=== PATIENT | male | born 1965 | race Caucasian/White ===

== ENCOUNTER 2017-07-18 04:57 | Emergency (ER) | payer OTHER ==
[~2017-07-18] VITALS: Ht 185.4 cm; Wt 111.0 kg
[~2017-07-18 04:57] MED LIST: DOXYCYCLINE HY100 MG PO; DULERA 200 MCG/13 GM IH; INCRUSE ELLI62.5 MCG IH; VENTOLIN HFA18 GM IH
[2017-07-18 05:56] VITALS: BP 122/83
== END 2017-07-18 06:03 | disposition home or self-care (01) ==
LOC: EME 04:57
DX: M25.562 Pain in left knee (principal); M25.462 Effusion, left knee; J44.9 Chronic obstructive pulmonary disease, unspecified; F17.200 Nicotine dependence, unspecified, uncomplicated
CPT/HCPCS: 73564; 99281; 99284

== ENCOUNTER 2017-07-25 17:52 | Emergency (ER) | payer OTHER ==
[~2017-07-25] VITALS: Ht 185.4 cm; Wt 116.6 kg
[2017-07-25 18:37] LABS: HEMATOCRIT 40.1 % (38.0-50.0); HEMOGLOBIN 13.7 G/DL (12.5-16.6); MCH 32.2 PG (29.0-34.0); MCHC 34.2 G/DL (30.0-36.0); MCV 94.1 FL (86-99); PLATELET COUNT 268 K/uL (156-360); RBC DIS.WIDTH-CV 12.7 % (11.8-14.6); RBC DIS.WIDTH-SD 43.8 % (39-53); RED BLOOD COUNT 4.26 M/uL (4.00-5.50); WHITE BLOOD COUNT 7.4 K/uL (4.1-10.2)
[2017-07-25 18:48] LABS: ALBUMIN 3.8 g/dL (3.2-4.8); CHLORIDE 108 mEq/L (99-109); POTASSIUM 3.9 mEq/L (3.7-5.4); SODIUM 143 mEq/L (136-147)
[2017-07-25 18:50] LABS: GLUCOSE 105 mg/dL (70-99); TOTAL PROTEIN 6.5 g/dL (6.4-8.3)
[2017-07-25 18:52] LABS: TOTAL BILIRUBIN 0.3 mg/dL (0.0-1.0)
[2017-07-25 18:54] LABS: ALKALINE PHOSPHATASE 102 IU/L (3-129); CREATININE 0.8 mg/dL (0.6-1.3); GFR ESTIMATE (CALCULATED) > 59 mL/min/ (58.99-99999)
[2017-07-25 18:55] LABS: UREA NITROGEN (BUN) 13 mg/dL (9-23)
[2017-07-25 18:56] LABS: AST (GOT) 16 IU/L (2-34)
[2017-07-25 18:57] LABS: ALT (GPT) 21 IU/L (3-49)
[2017-07-25 18:58] LABS: TROP-I INTERPRETATION NEGATIVE; TROPONIN-I 0.03 ng/mL (0.0-0.30)
[2017-07-25] MEDS ORDERED: ULTRAM50 MG PO (19:16)
[2017-07-25] MEDS ORDERED: MOTRIN800 MG PO (19:16)
[2017-07-25 19:28] VITALS: BP 140/88
== END 2017-07-25 19:46 | disposition home or self-care (01) ==
LOC: EME 17:52
PROVIDERS: Nurse Practitioner Family
DX: M25.562 Pain in left knee (principal); I49.3 Ventricular premature depolarization; F17.200 Nicotine dependence, unspecified, uncomplicated; J45.909 Unspecified asthma, uncomplicated
CPT/HCPCS: 71046; 80053; 84484; 85027; 93005; 99281; 99285